=== PATIENT | female | born 1980 | race Caucasian/White ===

== ENCOUNTER 2016-10-25 16:12 | Emergency (ER) | payer BC, OTHER ==
[~2016-10-25] VITALS: Ht 170.2 cm; Wt 100.6 kg
[2016-10-25 16:19] VITALS: Ht 170.2 cm; Wt 100.6 kg
[2016-10-25] MEDS ORDERED: DiphenhydrAMINE HCL 50 MG/ML VIAL IV STA (16:28)
[2016-10-25] MEDS ORDERED: SODIUM CHLORIDE 0.9% 1000ML 1,000 ML IV STA (16:28)
[2016-10-25] MEDS ORDERED: METHYLPREDNISOLONE 125 MG VIAL IV STA (16:28)
[2016-10-25] MEDS ORDERED: RANITIDINE HCL 50 MG/100 ML D5W IV STA (16:28)
[2016-10-25] MEDS ORDERED: ZNTT/150 PO (17:27)
[2016-10-25] MEDS ORDERED: MODA1TAB PO (17:27)
[2016-10-25] MEDS ORDERED: CHOL100027 PO (17:27)
[2016-10-25] MEDS ORDERED: MULT-506 PO (17:27)
[2016-10-25] MEDS ORDERED: ACYC1CAP8 PO (17:27)
[2016-10-25] MEDS ORDERED: ANAS1TAB19 PO (17:27)
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
[2016-10-25 18:28] VITALS: BP 121/74; PULSE 88; TEMP 36.9; O2SAT 99
== END 2016-10-25 18:29 | disposition home or self-care (01) ==
LOC: C.EDB 16:13 → C.EDA 18:29
DX: T63.441A Toxic effect of venom of bees, accidental (unintentional), initial encounter (principal); S00.561A Insect bite (nonvenomous) of lip, initial encounter; W57.XXXA Bitten or stung by nonvenomous insect and other nonvenomous arthropods, initial encounter; G35 Multiple sclerosis; F17.200 Nicotine dependence, unspecified, uncomplicated